=== PATIENT | male | born 1995 | race Caucasian/White ===

== ENCOUNTER 2022-12-01 06:21 | Day surgery (SDC) | payer OTHER ==
[2022-12-01] VITALS (7 sets, daily range): BP systolic 119–150; BP diastolic 73–98; PULSE 56–64; TEMP 97.2–98.1
[~2022-12-01] VITALS: Ht 172.7 cm; Wt 114.0 kg
[~2022-12-01 06:21] MED LIST: NORCO 325 MG-51 TAB PO
--- NOTE | 2022-12-01 11:25 | NUR ---
0955 RETURNS TO ROOM 6 PER CART. AWAKE, ALERT. RESP UNLABORED. HOB ELEVATED 40 DEGREES. REPORTS MODERATE RIGHT FLANK DISCOMFORT. CALL LIGHT AT SIDE. IN ROOM 1010 AMBULATES RO BATHROOM WITH STANDBY ASSIST. UNABLE TO VOID. 1025 PATIENT REPORTS INCREASED DISCOMFORT; RIGHT FLANK, ABD 1034 IV PAIN MED GIVEN. FENTANYL 50 MCG IV 1051 RPORTS ONLY MINIMAL PAIN RELIEF. REPEAT DOSE OF FENTANYL 50 MCG IV 1105 REPORTS INCREASED COMFORT. DISCHARGE INSTRUCTIONS REVIEWED. COPY PROVIDED IN DISCHARGE FOLDER. 1120 REPORTS SIGNIFICANT DECREASE IIN DISCOMFORT. SITS ON EDGE OF BED. DRESSES WITH AT SIDE. AMBULATES TO BATHROOM. REPORTS VOIDED WITHOUT DIFFICULTY. PINK URINE
== END 2022-12-01 11:28 | disposition home or self-care (01) ==
LOC: SDCO 06:21
DX: N20.1 Calculus of ureter (principal)
CPT/HCPCS: C1769; C2617; J0690; J1100; J2405; J2704; J3010; J7120